=== PATIENT | female | born 1950 | race Two or more races ===

== ENCOUNTER 2019-04-28 17:20 | Emergency (ER) | payer MEDICARE, MEDICAID ==
[~2019-04-28] VITALS: Ht 162.6 cm; Wt 63.5 kg
[2019-04-28 18:20] VITALS: BP 138/71
== END 2019-04-28 21:07 | disposition left against medical advice (07) ==
LOC: ER 17:24
DX: M54.9 Dorsalgia, unspecified (principal); Z53.21 Procedure and treatment not carried out due to patient leaving prior to being seen by health care provider